=== PATIENT | female | born 1950 | race Caucasian/White ===

== ENCOUNTER → 2024-09-28 17:42 | Outpatient (REF) | payer OTHER, SELFPAY | LOC: MRI 3T 17:42 | PROVIDERS: ATTENDING PHYSICIAN Specialist/Technologist Athletic Trainer; FAMILY PHYSICIAN Internal Medicine | DX: S43.421A Sprain of right rotator cuff capsule, initial encounter (principal); M25.511 Pain in right shoulder | CPT/HCPCS: 73221 ==